=== PATIENT | female | born 1970 | race Caucasian/White ===

== ENCOUNTER 2017-02-13 09:38 | Outpatient (CLI) | payer OTHER ==
[2017-02-13 13:43] LABS: BASOPHILS # (AUTO) 0.1 10^3/uL (0.0-0.1); BASOPHILS % (AUTO) 0.9 %; EOSINOPHILS # (AUTO) 0.4 10^3/uL (0.0-0.7); HCT - HEMATOCRIT 36.9 % (37.0-47.0); HGB - HEMOGLOBIN 12.5 g/dL (12.0-16.0); LYMPHOCYTES # (AUTO) 1.7 10^3/uL (1.5-3.5); LYMPHOCYTES % (AUTO) 19.6 %; MEAN CORPUSCULAR HEMOGLOBIN 31.9 pg (27.0-31.0); MEAN CORPUSCULAR HGB CONC 33.8 g/dL (32.0-36.0); MEAN CORPUSCULAR VOLUME 94.3 fL (81.0-99.0); MEAN PLATELET VOLUME 7.9 fL (7.9-10.8); MONOCYTES # (AUTO) 0.6 10^3/uL (0.0-1.0); NEUTROPHILS # (AUTO) 6.1 10^3/uL (1.5-6.6); NEUTROPHILS % (AUTO) 68.5 %; RED BLOOD COUNT 3.91 10^6/uL (4.20-5.40); RED CELL DISTRIBUTION WIDTH 13.3 % (12.0-15.0); UNCORRECTED WHITE BLOOD COUNT 8.9 x10^3/uL; WHITE BLOOD COUNT 8.9 x10^3/uL (4.8-10.8)
[2017-02-14 07:37] LABS: ALBUMIN/GLOBULIN RATIO 1.7 (1.0-2.2); BILIRUBIN,TOTAL 0.4 mg/dL (0.2-1.0); CALCIUM 9.2 mg/dL (8.5-10.3); CREATININE 0.7 mg/dL (0.4-1.0); POTASSIUM 3.7 mmol/L (3.5-5.0); TOTAL PROTEIN 6.5 g/dL (6.7-8.2)
== END 2017-02-13 09:39 | disposition home or self-care (01) ==
LOC: LAB.R 09:38
PROVIDERS: ATTEND Physician Assistant Medical
DX: R03.0 Elevated blood-pressure reading, without diagnosis of hypertension (principal)
CPT/HCPCS: 80053; 84443; 85025

== ENCOUNTER 2017-03-19 08:00 | Outpatient (CLI) | payer OTHER | END 2017-03-19 08:01 | disposition home or self-care (01) | LOC: LAB 08:00 | PROVIDERS: ATTEND Physician Assistant Medical | DX: Z11.59 Encounter for screening for other viral diseases (principal) | CPT/HCPCS: 36415; 86317; 86735; 86762; 86765; 86787 ==

== ENCOUNTER 2017-10-13 11:29 | Outpatient (CLI) | payer OTHER | END 2017-10-13 11:30 | disposition home or self-care (01) | LOC: DI 11:29 | PROVIDERS: ATTEND Physician Assistant Medical | DX: I10 Essential (primary) hypertension (principal); R00.2 Palpitations | CPT/HCPCS: 93306 ==

== ENCOUNTER 2017-10-30 08:00 | Outpatient (CLI) | payer OTHER ==
--- NOTE | 2017-10-31 13:49 | Ultrasound Report ---
RENAL ARTERY DUPLEX: 10/30/2017 CLINICAL INDICATION: Hypertension. TECHNIQUE: Real-time sonographic vascular imaging was performed by the fleet technician through the renal arteries utilizing both color-flow and Doppler flow analysis. Multiple sales representative trainee static images were saved for review. RT KIDNEY RENAL SIZE LT KIDNEY RENAL SIZE Size: 10.8 x 5.2 x 4.5 cm echotexture wnl Size: 10.4 x 5.6 x 5.2 cm echotexture wnl SEGMENTAL ARTERY SEGMENTAL ARTERY PSV RI PSV RI Upper Pole 16 0.46 Upper Pole 16 0.50 Mid Pole 24 0.54 Mid Pole 25 0.59 Lower Pole 21 0.58 Lower Pole 19 0.55 RIGHT RENAL ARTERY LEFT RENAL ARTERY PSV RENAL ARTERY/ AORTA RATIO (RA/AO) PSV RENAL ARTERY/ AORTA RATIO (RA/AO) Origin: 120 1.46 Origin: 93 1.13 Proximal: 116 1.41 Proximal: 105 1.28 Mid: 131 1.60 Mid: 109 1.33 Distal: 142 1.73 Distal: 98 1.20 PROX AORTA PSV: 82 cm/sec RRV PATENT: Yes. LRV PATENT: Yes. CRITERIA FOR CLASSIFICATION OF RENAL ARTERY DISEASE BY DUPLEX SCANNING Source: Criteria for Classification of Renal Artery Disease by Duplex Scanning [facility] Duplex Scanning In Vascular Disorders, 4th ed. 2010. Print. RENAL ARTERY DIAMETER REDUCTION RENAL ARTERY PSV RAR Normal < 180 cm/sec < 3.5 < 60% >/= 180 cm/sec < 3.5 >/= 60% >/= 180 cm/sec >/= 3.5 Occlusion (100%) No signal No signal FINDINGS RIGHT: The right renal artery is well visualized throughout its length. Velocities and ratios are normal. Resistive indices are normal. The right kidney measures 10.8 cm, and demonstrates no hydronephrosis. LEFT: The left renal artery is well visualized throughout its length. Velocities and ratios are normal. Resistive indices are normal. The left kidney measures 10.4 cm, and demonstrates no hydronephrosis. IMPRESSION: NORMAL RENAL ARTERY DUPLEX. NO EVIDENCE OF A HEMODYNAMICALLY SIGNIFICANT RENAL ARTERY STENOSIS. TD: 10/30/2017 13:17 [facility]
== END 2017-10-30 08:01 | disposition home or self-care (01) ==
LOC: DI 08:00
PROVIDERS: ATTEND Physician Assistant Medical
DX: I10 Essential (primary) hypertension (principal)
CPT/HCPCS: 93975

== ENCOUNTER 2018-12-06 19:46 | Emergency (ER) | payer BC, OTHER ==
[2018-12-06] MEDS ORDERED: ONDANSETRON 4 MG/2 ML VIAL IVP STA (19:58)
[2018-12-06] MEDS ORDERED: HYOSCYAMINE SL 0.125 MG TABLET SL STA (19:58)
[2018-12-06] MEDS ORDERED: LACTATED RINGERS 1,000 ML IV STA ×2 (19:58→20:18)
[2018-12-06 20:08] LABS: GLUCOSE, URINE (UA) NEGATIVE (NEGATIVE); KETONES,URINE (UA) >=80 mg/dL (NEGATIVE); LEUKOCYTE ESTERASE, URINE NEGATIVE (NEGATIVE); NITRITE,URINE NEGATIVE (NEGATIVE); OCCULT BLOOD,URINE NEGATIVE (NEGATIVE); PH,URINE 5.5 PH (5.0-7.5); PROTEIN,URINE NEGATIVE (NEGATIVE); UROBILINOGEN,URINE 0.2 (NORMAL) E.U./dL (NORMAL)
[2018-12-06 20:14] LABS: BILIRUBIN,URINE NEGATIVE (NEGATIVE); CLARITY,URINE CLEAR (CLEAR); ICTOTEST,URINE NEGATIVE
[2018-12-06 20:17] LABS: BASOPHILS % (AUTO) 0.5 %; EOSINOPHILS # (AUTO) 0.1 10^3/uL (0.0-0.7); EOSINOPHILS % (AUTO) 0.5 %; HGB - HEMOGLOBIN 14.1 g/dL (12.0-16.0); LYMPHOCYTES # (AUTO) 1.4 10^3/uL (1.5-3.5); LYMPHOCYTES % (AUTO) 15.2 %; MEAN CORPUSCULAR HGB CONC 33.2 g/dL (32.0-36.0); MEAN CORPUSCULAR VOLUME 96.5 fL (81.0-99.0); MEAN PLATELET VOLUME 7.8 fL (7.9-10.8); MONOCYTES # (AUTO) 0.8 10^3/uL (0.0-1.0); MONOCYTES % (AUTO) 8.6 %; NEUTROPHILS % (AUTO) 75.2 %; PLT - PLATELET COUNT 327 10^3/uL (130-450); RED BLOOD COUNT 4.39 10^6/uL (4.20-5.40); RED CELL DISTRIBUTION WIDTH 13.4 % (12.0-15.0); WHITE BLOOD COUNT 9.2 x10^3/uL (4.8-10.8)
[2018-12-06] MEDS ORDERED: IOVERSOL 320 100 ML VIAL IVP ONE ×2 (20:19→21:00)
--- NOTE | 2018-12-06 20:25 | ED Physician Documentation ---
PD HPI NVD - Stated complaint Stated Complaint: ABDOMINAL PX - Chief complaint Chief Complaint: Abd Pain - History obtained from History obtained from: Patient, Family - History of Present Illness Timing - onset: How many days ago (5) Timing - duration: Days (5) Timing - details: Gradual onset, Waxing and waning Pain level max: 8 Pain level now: 3 Associated symptoms: Fever, Abdominal pain (crampy, difuse), Hematochezia. No: Chest pain, Hematemesis, Melena, Dysuria, Hematuria Contributing factors: Sick contact. No: Bad food, Travel, Recent antibiotics, Alcohol use, Anticoagulated, Diabetes Improved by: Vomiting Worsened by: Eating Similar symptoms before: Has not had sx before Recently seen: Not recently seen Review of Systems Ten Systems: 10 systems reviewed and negative Constitutional: denies: Chills Ears: denies: Ear pain Nose: denies: Rhinorrhea / runny nose, Congestion Throat: denies: Sore throat Skin: denies: Rash Musculoskeletal: denies: Neck pain, Back pain Neurologic: denies: Headache PD PAST MEDICAL HISTORY - Past Medical History Past Medical History: Yes Cardiovascular: Hypertension - Past Surgical History 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 HEENT: Tonsil/Adenoidectomy - Present Medications Home Medications: Ambulatory Orders Medication Instructions Recorded Confirmed Amox/Clav 875/125 [Augmentin] 1 each PO Q12H #20 tablet 12/06/18 Hyoscyamine Sulfate [Levsin-Sl] 0.125 mg SL Q6H PRN #20 tab.subl 12/06/18 Metoprolol Succinate [Toprol Xl] 50 mg PO DAILY 12/06/18 12/06/18 Metronidazole [Flagyl] 500 mg PO TID #30 tablet 12/06/18 Ondansetron Odt [Zofran] 4 mg TL Q6H PRN #10 tablet 12/06/18 - Allergies Allergies/Adverse Reactions: Allergies Allergy/AdvReac Type Severity Reaction Status Date / Time phenobarbital Allergy Rash Verified 12/06/18 19:56 - Social History Does the pt smoke?: No Smoking Status: Never smoker Does the pt drink ETOH?: Yes ETOH Use: Wine Does the pt have substance abuse?: No - Immunizations Immunizations are current?: Yes PD ED PE NORMAL - Vitals Vital signs reviewed: Yes - General General: Alert and oriented X 3, No acute distress, Well developed/nourished - HEENT HEENT: Other (dry lips) - Neck Neck: Supple, no meningeal sign - Cardiac Cardiac: Strong equal pulses, Other (tachycardic) - Respiratory Respiratory: No respiratory distress, Clear bilaterally - Abdomen Abdomen: Soft, Non distended, Other (Tender palpation in the left upper and left lower quadrant. No peritoneal signs) - Back Back: No CVA TTP - Derm Derm: Warm and dry, No rash - Extremities Extremities: No edema - Neuro Neuro: Alert and oriented X 3 - Psych Psych: Normal mood, Normal affect Results - Vitals Vitals: Vital Signs - 24 hr 12/06/18 12/06/18 12/06/18 19:48 20:19 20:55 Temperature 36.9 C Heart Rate 133 H 94 82 Respiratory 20 18 18 Rate Blood Pressure 179/109 H 145/93 H 172/96 H O2 Saturation 94 99 97 Oxygen O2 Source Room air - Labs Labs: Microbiology 12/06/18 19:57 Campylobacter Antigen Assay - Final Stool Laboratory Tests 12/06/18 12/06/18 12/06/18 19:57 20:05 20:05 WBC 9.2 RBC 4.39 Hgb 14.1 Hct 42.3 MCV 96.5 MCH 32.0 H MCHC 33.2 RDW 13.4 Plt Count 327 MPV 7.8 L Neut # (Auto) 7.0 H Lymph # (Auto) 1.4 L Crockett # (Auto) 0.8 Eos # (Auto) 0.1 Baso # (Auto) 0.0 Absolute Nucleated RBC 0.00 Nucleated RBC % 0.0 Sodium 135 Potassium 3.2 L Chloride 98 L Carbon Dioxide 19 L Anion Gap 18.0 H BUN 10 Creatinine 0.7 Estimated GFR (MDRD) 90 Glucose 82 Calcium 8.6 Total Bilirubin 1.1 H AST 29 ALT 26 Alkaline Phosphatase 52 Total Protein 6.9 Albumin 4.4 Globulin 2.5 Albumin/Globulin Ratio 1.8 Lipase 22 Urine Color YELLOW Urine Clarity CLEAR Urine pH 5.5 Ur Specific Art >=1.030 H Urine Protein NEGATIVE Urine Glucose (UA) NEGATIVE Urine Ketones >=80 H Urine Occult Blood NEGATIVE Urine Nitrite NEGATIVE Urine Bilirubin NEGATIVE Urine Urobilinogen 0.2 (NORMAL) Ur Leukocyte Esterase NEGATIVE Ur Microscopic Review NOT INDICATED Urine Culture Comments NOT INDICATED - Rads (name of study) CT abdomen pelvis Radiology: Prelim report reviewed, EMP read contemporaneously, See rad report (Extensive colitis with the greatest disease involving the transverse colon.) PD MEDICAL DECISION MAKING - ED course Complexity details: reviewed results, re-evaluated patient, considered differential, d/w patient, d/w family ED course: 48-year-old female presents to the emergency department with extensive colitis. Will place on Augmentin and Flagyl. She is well-appearing, nontoxic. Tolerating p.o. here after Zofran. Feels better after IV fluids, Zofran, Unasyn and Flagyl here. She would like to go home at this time. will be with her. She will return if she worsens. Patient and family counseled regarding signs and symptoms for which I believe and urgent re-evaluation would be necessary. Patient with good understanding of and agreement to plan and is comfortable going home at this time This document was made in part using voice recognition software. While efforts are made to proofread this document, sound alike and grammatical errors may occur. Departure - Departure Disposition: 01 Home, Self Care Clinical Impression: Colitis Condition: Good Instructions: ED Gastroenteritis Bacterial Follow-Up: Lisandro Mixon MD [Primary Care Provider] - Within 3 Days Prescriptions: Amox/Clav 875/125 [Augmentin] 1 each PO Q12H #20 tablet Hyoscyamine Sulfate [Levsin-Sl] 0.125 mg SL Q6H PRN #20 tab.subl PRN Reason: Abdominal Pain Metronidazole [Flagyl] 500 mg PO TID #30 tablet Ondansetron Odt [Zofran] 4 mg TL Q6H PRN #10 tablet PRN Reason: Nausea / Vomiting Comments: Drink plenty of fluids at home. Return if you worsen. I would stick to a liquid diet tomorrow. This should improve over the next 24-48 hours. Return immediately if you are not feeling well or worsening.
[2018-12-06 20:26] LABS: ALBUMIN 4.4 g/dL (3.2-5.5); ALBUMIN/GLOBULIN RATIO 1.8 (1.0-2.2); BILIRUBIN,TOTAL 1.1 mg/dL (0.2-1.0); CALCIUM 8.6 mg/dL (8.5-10.3); CREATININE 0.7 mg/dL (0.4-1.0); TOTAL PROTEIN 6.9 g/dL (6.7-8.2)
--- NOTE | 2018-12-06 21:37 | CT Report ---
Reason: diffuse abd pain, bloody stool, vomiting. Procedure Date: 12/06/2018 Accession Number: [id number] / [id number] Procedure: CT - Abdomen/Pelvis W CPT Code: FULL RESULT: EXAM: CT ABDOMEN AND PELVIS EXAM DATE: 12/06/2018 08:44 PM. CLINICAL HISTORY: Diffuse abd pain, bloody stool, vomiting. COMPARISONS: ARTERIAL VISCERAL COMPLETE 10/30/2017 8:11 AM. TECHNIQUE: Routine helical CT imaging was performed through the abdomen and pelvis. IV contrast: 100 ML OPTIRAY 320. Enteric contrast: No. Reconstructions: Coronal and sagittal. In accordance with CT protocol optimization, one or more of the following dose reduction techniques were utilized for this exam: automated exposure control, adjustment of mA and/or KV based on patient size, or use of iterative reconstructive technique. FINDINGS: Lung Bases: Unremarkable. Liver: Normal. No masses. Gallbladder/Bile Ducts: Unremarkable. Spleen: Normal. Pancreas: Normal. Adrenal Glands: Normal. Kidneys: Normal. No masses or hydronephrosis. Peritoneal Cavity/Bowel: Normal. No free fluid, free air or adenopathy. No masses or acute inflammatory process. There is very markedwall thickening of the transverse colon with stranding of the surrounds fat. There is a moderate amount of stool in the ascending colon. Pelvic Organs: Thre is an IUD within the uterus. No adnexal masses. No free fluid. Vasculature: No aneurysms or other significant abnormality. Bones: No significant abnormality. Other: None. IMPRESSION: Extensive of colitis with the greatest disease involving the transverse colon. RADIA
[2018-12-06] MEDS ORDERED: metroNIDAZOLE 500 MG/100 ML 500 MG/100 ML BAG IV ONE (21:41)
[2018-12-06] MEDS ORDERED: AMPICILLIN/SULBACTAM 3 GM in SODIUM CHLORIDE 0.9% MINIBAG 100 ML IV STA (21:41)
[2018-12-06] MEDS ORDERED: metroNIDAZOLE 250 MG TABLET PO STA (22:08)
[2018-12-06 22:32] VITALS: BP 139/77
== END 2018-12-06 22:36 | disposition home or self-care (01) ==
LOC: ED 19:46
DX: K52.9 Noninfective gastroenteritis and colitis, unspecified (principal); I10 Essential (primary) hypertension
CPT/HCPCS: 36415; 74177; 80053; 81003; 83690; 85025; 87045; 87046; 87493; 87798; 96361; 96365; 96375; 99283; 99284; A9270; J7120; Q9967; 81001; 87086

== ENCOUNTER 2020-06-29 10:52 | Outpatient (CLI) | payer BC ==
--- NOTE | 2020-06-30 15:26 | Ultrasound Report ---
LIMITED ULTRASOUND OF LEFT BREAST: 06/29/2020 CLINICAL: Palpable left breast lump. Comparison is made to exams dated: 06/29/2020 mammogram and 08/20/2013 mammogram - [facility]. Real-time ultrasound of the left breast was performed. Dumont scale images of the real-time examinati on were reviewed. No significant abnormalities were seen sonographically in the left breast. Specifically, no finding to correspond to the patient's palpable abnormality. IMPRESSION: NEGATIVE There is no sonographic correlate to the patient's palpable abnormality and no evidence of malignancy . Return to annual mammogram screening schedule is recommended. Findings and recommendations were conveyed to the patient at time of exam. This exam was interpreted at Station ID: [id number]. Electronically Signed By: Valeri hercules/:06/29/2020 13:31:33 Ultrasound BI-RADS: 1 Negative BI-RADS CATEGORY: (1) - 1 RECOMMENDATION: (ANNUAL) - Recommend routine annual screening mammography. [id number] return to screening LATERALITY: (B)
--- NOTE | 2020-06-30 15:26 | Mammography Report ---
BILATERAL DIGITAL DIAGNOSTIC MAMMOGRAM 3D/2D: 06/29/2020 CLINICAL: Intermittent left breast pain. Comparison is made to exam dated: 08/20/2013 mammogram - [facility]. The tissue o f both breasts is heterogeneously dense. This may lower the sensitivity of mammography. Bilateral submuscular saline implants are present. There is possible duct ectasia in the right breast central to the nipple in the retroareolar region. No other significant masses, calcifications, or other findings are seen in either breast. Specifical ly, no finding to explain the patient's left breast retroareolar pain. IMPRESSION: INCOMPLETE: NEEDS ADDITIONAL IMAGING EVALUATION The duct ectasia in the right breast is indeterminate. An ultrasound is recommended. There is no abnormality seen in the left breast to correspond with the pain in the sub-areolar depth, however, ultrasound is recommended. Bilateral breast ultrasound was performed immediately following this exam. This exam was interpreted at Station ID: [id number]. NOTE: For mammograms, a report in lay terms will be sent to the patient. Approximately 15% of breast malignancies will not be visualized mammographically. In the management of a palpable breast mass, a negative mammogram must not discourage biopsy of a clinically suspicious lesion. Electronically Signed By: Valeri hercules/:06/29/2020 18:25:08 ACR BI-RADS Category 0: Incomplete 3340F PARENCHYMAL PATTERN: (D) - The breast(s) demonstrate(s) heterogeneously dense fibroglandular gustavo mattson. BI-RADS CATEGORY: (0) - 0 Ultrasound [id number] Immediate follow-up LATERALITY: (B)
--- NOTE | 2020-06-30 15:26 | Ultrasound Report ---
LIMITED ULTRASOUND OF RIGHT BREAST: 06/29/2020 CLINICAL: Patient returns today to evaluate asymmetry in the right breast. Comparison is made to exams dated: 06/29/2020 ultrasound, 06/29/2020 mammogram, and 08/20/2013 mammo [facility]. Color flow and real-time ultrasound of the right breast retroareolar were performed. Dumont scale imag es of the real-time examination were reviewed. No sonographic abnormalties in the retroareolar right breast. A few prominent ducts are present and m ay account for the mammographic finding of asymmetry. IMPRESSION: NEGATIVE There is no sonographic correlate to the patient's mammographic abnormality and no evidence of malign ishaan. Return to annual mammogram screening schedule is recommended. Findings and recommendations were conveyed to the patient at time of exam. This exam was interpreted at Station ID: [id number]. Electronically Signed By: Valeri hercules/:06/29/2020 13:35:10 Ultrasound BI-RADS: 1 Negative BI-RADS CATEGORY: (1) - 1 RECOMMENDATION: (ANNUAL) - Recommend routine annual screening mammography. [id number] return to screening LATERALITY: (B)
== END 2020-06-29 10:53 | disposition home or self-care (01) ==
LOC: DI 10:52
PROVIDERS: ATTEND Nurse Practitioner Obstetrics & Gynecology
DX: N64.4 Mastodynia (principal)
CPT/HCPCS: 76642; 77066

== ENCOUNTER 2021-11-30 08:33 | Outpatient (CLI) | payer BC ==
[2021-11-30 08:53] LABS: BASOPHILS % (AUTO) 0.7 %; EOSINOPHILS # (AUTO) 0.1 10^3/uL (0.0-0.7); HCT - HEMATOCRIT 39.8 % (37.0-47.0); HGB - HEMOGLOBIN 13.4 g/dL (12.0-16.0); LYMPHOCYTES # (AUTO) 1.5 10^3/uL (1.5-3.5); LYMPHOCYTES % (AUTO) 24.4 %; MEAN CORPUSCULAR HEMOGLOBIN 33.1 pg (27.0-31.0); MEAN CORPUSCULAR HGB CONC 33.7 g/dL (32.0-36.0); MEAN CORPUSCULAR VOLUME 98.3 fL (81.0-99.0); MEAN PLATELET VOLUME 9.6 fL (7.9-10.8); MONOCYTES # (AUTO) 0.7 10^3/uL (0.0-1.0); MONOCYTES % (AUTO) 10.8 %; NEUTROPHILS # (AUTO) 3.8 10^3/uL (1.5-6.6); NEUTROPHILS % (AUTO) 61.6 %; PLT - PLATELET COUNT 290 10^3/uL (130-450); RED BLOOD COUNT 4.05 10^6/uL (4.20-5.40); RED CELL DISTRIBUTION WIDTH 13.1 % (12.0-15.0); WHITE BLOOD COUNT 6.1 x10^3/uL (4.8-10.8)
[2021-11-30 09:09] LABS: ALBUMIN 4.6 g/dL (3.2-5.5); ALBUMIN/GLOBULIN RATIO 1.5 (1.0-2.2); ALKALINE PHOSPHATASE 47 IU/L (42-121); ALT ALANINE AMINOTRANSFERASE 26 IU/L (10-60); AST ASPARTATE AMINOTRANSFERASE 25 IU/L (10-42); BILIRUBIN,TOTAL 0.8 mg/dL (0.2-1.0); BUN - BLOOD UREA NITROGEN 20 mg/dL (6-20); CARBON DIOXIDE - CO2 25 mmol/L (21-32); CHLORIDE 99 mmol/L (101-111); CHOL/HDL RATIO 2.4 (<4.4); CHOLESTEROL 198 mg/dL; CREATININE 0.7 mg/dL (0.4-1.0); GFR - MDRD 89 (>89); GLUCOSE 101 mg/dL (70-100); HDL CHOLESTEROL 81 mg/dL; LDL CHOLESTEROL,CALCULATED 101 mg/dL; LDL/HDL RATIO 1.2 (<4.4); POTASSIUM 4.3 mmol/L (3.5-5.0); SODIUM 134 mmol/L (135-145); TOTAL PROTEIN 7.6 g/dL (6.7-8.2); TRIGLYCERIDES 78 mg/dL; VLDL CHOLESTEROL 16 mg/dL
[2021-11-30 09:19] LABS: THYROID STIMULATING HORMONE 4.08 uIU/mL (0.34-5.60)
== END 2021-11-30 08:34 | disposition home or self-care (01) ==
LOC: LAB 08:33
PROVIDERS: ATTEND Nurse Practitioner
DX: I10 Essential (primary) hypertension (principal); R00.2 Palpitations
CPT/HCPCS: 36415; 80053; 80061; 83721; 84443; 85025

== ENCOUNTER 2024-03-27 12:55 | Outpatient (CLI) | payer BC ==
--- NOTE | 2024-03-30 09:45 | Mammography Report ---
BILATERAL DIGITAL SCREENING MAMMOGRAM 3D/2D WITH AUGMENTATION: 03/27/2024 CLINICAL: Routine screening. Comparison is made to exam dated: 06/29/2020 mammogram - [facility]. There are scattered areas of fibroglandular density in both breasts (category b / 25%-50% glandular t issue). Bilateral breast implants are stable and intact. No significant masses, calcifications, or other findings are seen in either breast. There has been no significant interval change. IMPRESSION: NEGATIVE There is no mammographic evidence of malignancy. A 1 year screening mammogram is recommended. Based on the Tyrer Cuzick model (a risk assessment model) the patient's lifetime risk is 5.9% and her 10 year risk is 1.5%. According to the ACR, ACS, and NCCN guidelines, an annual breast MRI exam shilo g with mammogram is recommended if the patient's lifetime risk is 20% or greater. This exam was interpreted at Station ID: [id number]. NOTE: For mammograms, a report in lay terms will be sent to the patient. Approximately 15% of breast malignancies will not be visualized mammographically. In the management of a palpable breast mass, a negative mammogram must not discourage biopsy of a clinically suspicious lesion. Electronically Signed By: Roge sepulveda/hanna:03/27/2024 13:45:14 letter sent: No_Letter ACR BI-RADS Category 1: Negative 3341F PARENCHYMAL PATTERN: (A) - The breast(s) demonstrate(s) scattered fibroglandular densities. BI-RADS CATEGORY: (1) - 1 RECOMMENDATION: (ANNUAL) - Recommend routine annual screening mammography. [id number] 1 year screening LATERALITY: (B)
== END 2024-03-27 12:56 | disposition home or self-care (01) ==
LOC: DI 12:55
PROVIDERS: ATTEND Nurse Practitioner
DX: Z12.31 Encounter for screening mammogram for malignant neoplasm of breast (principal); Z98.82 Breast implant status; R92.323 Mammographic fibroglandular density, bilateral breasts